=== PATIENT | male | born 1990 | race Caucasian/White ===

== ENCOUNTER 2020-07-05 17:15 | Emergency (ER) | payer OTHER, SELFPAY ==
[2020-07-05 17:15] VITALS: BP 119/96; PULSE 127; RESP 16; TEMP 36.5; O2SAT 100; BMI 19.5
--- NOTE | 2020-07-05 17:28 | RAD_ITS ---
STUDY: X-RAY - LEFT ANKLE REASON FOR EXAM: Male, 30 years old. [place] a pop, pain running up leg. TECHNIQUE: 3 view(s) of the ankle. COMPARISON: None. FINDINGS: There is a benign bone island of the distal tibia. Normal medial and lateral malleoli. Normal tibiotalar articulation and ankle mortise. Normal visualized talus and calcaneus. The visualized subtalar, talonavicular, calcaneocuboid and tarsal articulations are normal. The soft tissue structures are unremarkable. RAD/Ankle min 3 Views IMPRESSION: No fracture or malalignment. Electronically Signed: Kelvin Morales MD ([place]) at 18:12 EST , Service support ,
--- NOTE | 2020-07-05 17:28 | RAD_ITS ---
STUDY: X-RAY - LEFT TIBIA AND FIBULA REASON FOR EXAM: Male, 30 years old. [place] and quot;pop and quot;, pain running up leg. TECHNIQUE: 2 view(s) of the tibia and fibula were obtained. COMPARISON: None. FINDINGS: Normal visualized tibia. Normal visualized fibula. The soft tissue structures are unremarkable. RAD/Tibia & Fibula 2 Views IMPRESSION: Normal x-ray examination of the tibia and fibula. Electronically Signed: Kelvin Morales MD ([place]) at 18:13 EST , Service support ,
--- NOTE | 2020-07-05 17:52 | ED.VISSUMM ---
- ER Visit Summary Date of Service: 07/05/20 Chief Complaint: Left leg pain History of Present Illness: The patient is a 30 M presenting with left leg and ankle pain. Patient states he was jumping on a trampoline and felt a pop in his left leg. He has been able to ambulate with pain since. He took ibuprofen and Tylenol prior to arrival. He did not hit his head or lose consciousness. No other injuries. Physical Examination: Vitals are stable. Patient is afebrile. Alert no acute distress. HEENT exam is unremarkable. Neck is supple. Lungs are clear and equal bilaterally. Heart is regular rate and rhythm. Extremities left lateral lower leg tenderness. Left lateral ankle tenderness. Foot is nontender. Active full range of motion. Quadricep mechanism intact. Normal pulses. Myers test normal. Skin is warm and dry. No focal neurologic deficit. Remainder of exam is unremarkable. Emergency Department Course and Treatment: X-ray left tib-fib and left ankle show no acute process. Patient is advised to ice and elevate. He is given prescription for naproxen. He is given an Aircast. He declined crutches. Advised to follow-up with primary care physician. Advised return to ED for worsening complaints. Disposition: Discharge home Impression: Left leg injury, left ankle sprain This note was generated with [employer] dictation software. It may contain incorrect words, spelling, and punctuation that were not noted in review of the chart prior to signing ED Disposition - Plan for ED Patient: Instructions: ED Sprain Ankle W X Ray Prescriptions: Naproxen [Naprosyn] 500 mg PO BID #14 tab Prescription Printed Referrals: Rikki Beckham MD [NON-STAFF] -
--- NOTE | 2020-07-05 18:24 | ED.DEP ---
ED Disposition - Plan for ED Patient: Instructions: ED Sprain Ankle W X Ray Prescriptions: Naproxen [Naprosyn] 500 mg PO BID #14 tab Prescription Printed Referrals: Rikki Beckham MD [NON-STAFF] -
== END 2020-07-05 18:37 | disposition home or self-care (01) ==
LOC: ED 18:10
PROVIDERS: Emergency Provider Emergency Medicine
DX: S93.402A Sprain of unspecified ligament of left ankle, initial encounter (principal); S89.92XA Unspecified injury of left lower leg, initial encounter; Z72.0 Tobacco use; X58.XXXA Exposure to other specified factors, initial encounter; Y93.44 Activity, trampolining; Y92.89 Other specified places as the place of occurrence of the external cause; Y99.8 Other external cause status
CPT/HCPCS: 73590; 73610; 99282

== ENCOUNTER 2022-08-21 13:42 | Emergency (ER) | payer MEDICAID, SELFPAY ==
[2022-08-21 13:43] VITALS: BP 157/95; PULSE 90; RESP 18; TEMP 36.3; O2SAT 98; BMI 19.7
--- NOTE | 2022-08-21 14:00 | RAD_ITS ---
STUDY: X-RAY - RIGHT FOOT CLINICAL: Male, 32 years old. MARTIAL ARTS INJURY. APPROX 1 WEEK AGO. BRUISING DORSAL SURFACE OVER MTP JOINT OF FIRST DIGIT. TECHNIQUE: view(s) of the foot. COMPARISON: None. FINDINGS: Normal talus, calcaneus, and tarsal bones. Normal visualized subtalar, talonavicular, calcaneocuboid, tarsal and tarsometatarsal articulations. Normal metatarsi. Normal metatarsophalangeal joint of the great toe. Normal tibial and fibular sesamoid bones. Normal interphalangeal joint of the great toe. Normal phalanges of the great toe. Normal second through fifth metatarsophalangeal joints. Normal interphalangeal joints and phalanges of the lesser toes. The soft tissue structures are unremarkable. There is no demonstrated fracture. RAD/Foot min 3 Views IMPRESSION: Normal x-ray examination of the foot. Electronically Signed: Alber Hensley MD at 14:58 EST ,
--- NOTE | 2022-08-21 14:00 | RAD_ITS ---
STUDY: X-RAY - RIGHT SHOULDER REASON FOR EXAM: Male, 32 years old. PAIN/INJURY TECHNIQUE: 2 view(s) of the shoulder. COMPARISON: None. FINDINGS: Normal glenohumeral articulation. Normal acromioclavicular joint. Normal acromion. Normal humeral head and visualized proximal humerus. The soft tissue structures are unremarkable. There is no demonstrated fracture. Normal visualized pulmonary apex. RAD/Shoulder min 2 Views IMPRESSION: Normal x-ray examination of the shoulder. Electronically Signed: Alber Hensley MD at 14:59 EST ,
--- NOTE | 2022-08-21 14:14 | EX.ED.DYSGE1 ---
HPI History of Present Illness Chief Complaint: General Illness Informant: patient Onset/Context/Timing Onset: Days Narrative Narrative: Patient presents with multiple complaints. He complains of right shoulder and right great toe pain that he injured while doing martial arts. He also believes he may have an abdominal wall hernia. Patient states he was recently doing a drill in martial arts and swelling his right elbow back. He felt a pulling sensation over the anterior right shoulder and has had pain to that area since that time. He will intermittently have numbness to the right third, fourth, and fifth fingers. He also believes he may have broken his right great toe about a week ago. He has had bruising and pain to the area. He states it is improving but is not back to baseline. He also recently noted a bulge over his left upper abdominal wall below his ribs. He states it went back in on its own. He was looking at some information online and is concerned he may have a hernia. He has had some intermittent nausea but no vomiting. PFSH PFSH Medical History no medical history no medical history Home Medications naproxen 500 mg tablet 500 mg PO BID #14 tabs 07/05/20 [Rx Last Taken Unknown] ondansetron 4 mg disintegrating tablet 4 mg PO Q8H PRN nausea and vomiting #10 tabs 08/21/22 [Rx Last Taken Unknown] Allergy/AdvReac Type Severity Reaction Status Date / Time cefuroxime axetil Allergy Rash Verified 08/21/22 13:45 [From Ceftin] Social History Smoking Status: Current every day smoker tobacco type: cigarettes ROS ROS ED Constitutional Constitutional ED: Denies chills or fever(s) Eyes Eyes: Denies change in vision or discharge from eye(s) ENT ENT ED: Denies discharge from eye(s), rhinorrhea or sore throat Cardiovascular Cardiovascular: Denies chest pain or palpitations Respiratory/Chest Respiratory/Chest: Denies cough or dyspnea Gastrointestinal Gastrointestinal: Reports nausea; Denies abdominal pain, diarrhea or vomiting Genitourinary Genitourinary ED: Denies dysuria Musculoskeletal Musculoskeletal: Reports extremity pain; Denies back pain Integumentary Denies Abrasions or rash Neurologic Neurologic: Reports paresthesias; Denies headache(s) or weakness Psychiatric Psychiatric: Denies anxiety or depression Allergic/Immunologic Allergic/Immunologic ED: Denies lip swelling or urticaria EXAM Physical Exam Const Vital Signs: 08/21/22 13:43 Temperature 97.3 F L Temperature Source Temporal Pulse Rate 90 Respiratory Rate 18 Blood Pressure 157/95 H Blood Pressure Mean 115 Pulse Ox 98 Oxygen Delivery Method Room Air Positive well nourished and well developed General Appearance ED: well developed HEENT Reports normocephalic and head/scalp atraumatic Eyes PERRL and EOMs intact bilaterally Neck supple Chest Wall inspection of chest normal and palpation of chest normal Resp normal respiratory effort and clear to auscultation bilaterally Cardio regular rate and regular rhythm GI normal to inspection, nondistended, normoactive bowel sounds GI Narrative: No abdominal wall hernias noted. I had the patient bear down with no evidence of hernia appearing. Palpation: soft Back/Spine no CVA tenderness Extremity Extremity Narrative: Right shoulder: Mild tenderness over the anterior right shoulder. Full range of motion without difficulty. Normal strength and sensation with good cap refill distally. Right foot: Old appearing ecchymosis is noted along the base of the right great toe. Mild tenderness noted over the right great toe with no obvious deformity or edema. No tenderness at the ankle or knee. Neuro oriented x3 and no sensory deficits noted Sensorium / Orientation: alert Motor Exam: strength 5/5 throughout Psych mental status grossly normal MDM MDM MDM Narrative Medical decision making narrative: X-rays of the right shoulder and right foot were obtained per nursing protocol. Patient given a dose of Zofran for nausea. Radiography Diagnostic Testing: Clinical Impression(s) from Imaging Studies Foot X-Ray 08/21/22 14:00 IMPRESSION: Normal x-ray examination of the foot. Electronically Signed: Alber Hensley MD at 14:58 EST , Shoulder X-Ray 08/21/22 14:00 IMPRESSION: Normal x-ray examination of the shoulder. Electronically Signed: Alber Hensley MD at 14:59 EST , Treatment and Re-Evaluation Narrative: Right shoulder and right foot x-rays per my interpretation reveal no evidence of acute or recent fracture. Radiology interpretation is reviewed and agrees. On repeat evaluation patient states his nausea is improved. He does state that he tends to only eat 1 meal in the evening and goes all day without food. This may be contributing to his nausea. Patient describes what sounds like an abdominal wall hernia but there is no evidence of hernia on exam at this time. We discussed this at length. I did encourage him to follow-up with a surgeon if this recurs and is bothersome to him. He was advised that if the hernia protrudes to his abdomen and does not resolve or becomes painful he needs to return to the emergency room immediately. Discharge Plan Triage Chief Complaint: General Illness ED Provider: Soha José Dx/Rx/DC Orders Clinical Impression: Sprain of right shoulder, Contusion of right foot, Nausea, Abdominal wall hernia Instructions: ED Foot Contusion, ED Hernia (Adult), ED Shoulder Sprain Prescriptions: New ondansetron 4 mg tablet,disintegrating 4 mg PO Q8H PRN (Reason: nausea and vomiting) Qty: 10 0RF No Action naproxen 500 MG tablet 500 mg PO BID Qty: 14 0RF Primary Care Provider: Care Physician,No Primary Referrals: Fariha Grossman MD [Med Staff - [employer]] - As Needed Care Physician,No Primary [Primary Care Provider] - Disposition Disposition: Home, Self Care
[2022-08-21] MEDS: Ondansetron ODT 4 MG Tablet PO (14:35)
[2022-08-21 15:18] VITALS: BP 132/75; PULSE 61; RESP 15; O2SAT 99
== END 2022-08-21 15:19 | disposition home or self-care (01) ==
PROVIDERS: Emergency Provider Emergency Medicine; Visit Provider Emergency Medicine
DX: S43.401A Unspecified sprain of right shoulder joint, initial encounter (principal); R11.0 Nausea; S90.31XA Contusion of right foot, initial encounter; F17.210 Nicotine dependence, cigarettes, uncomplicated; K43.9 Ventral hernia without obstruction or gangrene; X58.XXXA Exposure to other specified factors, initial encounter
CPT/HCPCS: 73030; 73630; 96374; 99282

== ENCOUNTER → 2022-09-13 | Outpatient (CLI) | payer MEDICAID, SELFPAY ==
[2022-09-13 08:48] LABS: Absolute Lymphocyte Count 2.35 X10^3/uL (0.83-4.51); Absolute Neutrophil Count 3.5 X10^3/uL (2.0-7.7); Basophil# 0.04 X10^3/uL; Basophil% 0.6 % (0-1); Eosinophil# 0.35 X10^3/uL; Eosinophils% 4.9 % (0-5); Hematocrit 48.7 % (40-54); Hemoglobin 16.2 g/dL (13.0-16.5); Lymphocyte # 2.35 X10^3/ul (0.83-4.51); Lymphocyte % 33.1 % (19-41); Mean Corp Hgb Conc 33.3 g/dL (32-36); Mean Corpuscular Hgb 30.1 pg (27.0-32.0); Mean Corpuscular Volume 90.5 fL (80-94); Mean Platelet Vol. 11.1 fl (6.2-12.0); Monocyte# 0.81 X10^3/uL; Monocyte% 11.4 % (0-10); NRBC Flagged by Analyzer 0 % (0-5); Neutrophil # 3.52 X10^3/uL (2.7-7.7); Neutrophil % 49.7 % (47-70); Platelet Count 154 K/mm3 (150-450); RBC Distribution Width CV 13.2 % (11.6-14.6); RBC Distribution Width SD 43.5 fl (35.1-43.9); Red Blood Count 5.38 M/mm3 (4.6-6.2); White Blood Count 7.1 K/mm3 (4.4-11.0)
[2022-09-13 09:18] LABS: ALB/GLOB Ratio 1.5 RATIO (0.9-2.4); AST(SGOT) 11 U/L (15-37); Alanine Aminotransfer ALT/SGPT 20 U/L (16-61); Albumin, Serum 4.2 g/dL (3.2-5.0); Alkaline Phosphatase 42 U/L (45-117); Anion Gap 5 (5-15); BUN 13 mg/dL (7-18); Calcium,Total 9.2 mg/dL (8.5-10.1); Chloride 105 mmol/L (98-107); Cholesterol 182 mg/dL (200); Creatinine, Serum 0.93 mg/dL (0.70-1.30); EST Glomerular Filtration Rate 102 mL/min (>60); Est Glom Filt Rate - Afr Amer 123 mL/min (>60); Globulin 2.8 g/dL (2.2-4.2); Glucose 104 mg/dL (74-106); High Density Lipoprotein 52 mg/dL; Potassium 3.9 mmol/L (3.5-5.1); Sodium Level 141 mmol/L (136-145); Triglycerides 118 mg/dL; Very Low Density Lipoprotein 24 mg/dL (5-40)
[2022-09-13 10:20] LABS: Vitamin D,25 Hydroxy 17.7 ng/mL
== END | disposition home or self-care (01) ==
LOC: LAB 08:09
PROVIDERS: PCP Internal Medicine; Referring Provider Internal Medicine; Visit Provider Internal Medicine
DX: Z00.00 Encounter for general adult medical examination without abnormal findings (principal); Z13.220 Encounter for screening for lipoid disorders; Z13.1 Encounter for screening for diabetes mellitus; E55.9 Vitamin D deficiency, unspecified
CPT/HCPCS: 36415; 80053; 80061; 82306; 85025

== ENCOUNTER 2022-11-15 18:00 | Emergency (ER) | payer MEDICAID, SELFPAY ==
[2022-11-15 18:01] VITALS: BP 136/90; PULSE 100; RESP 16; TEMP 36.9; O2SAT 96; BMI 19.0
--- NOTE | 2022-11-15 18:46 | EKG12_ITS ---
Test Reason : SOB/DIZZYNESS Blood Pressure : / mmHG Vent. Rate : 075 BPM Atrial Rate : 075 BPM P-R Int : 152 ms QRS Dur : 104 ms QT Int : 366 ms P-R-T Axes : 049 086 052 degrees QTc Int : 408 ms Normal sinus rhythm Incomplete right bundle branch block Borderline ECG Confirmed by JAYA FAJARDO, LUCIE ([id number]), subeditor MICK RING ([id number]) on 11/21/2022 9:55:06 AM Referred By: GUERO/DAMIAN Confirmed By:LUCIE LAKE MD
--- NOTE | 2022-11-15 18:47 | RAD_ITS ---
INDICATION: SOB EXAMINATION/TECHNIQUE: X-RAY - XR Chest 1 View COMPARISON: None. FINDINGS: The lungs are clear. The cardiomediastinal silhouette is unremarkable. No pleural effusion or pneumothorax. No acute osseous abnormalities. RAD/Chest 1 View (Portable) IMPRESSION: No acute radiographic abnormalities. Electronically Signed: Rudy Sanchez MD at 19:14 EDT ,
--- NOTE | 2022-11-15 19:19 | ED.RN ---
STATES HE FEELS DIZZY/LIGHTHEADED AT TIMES AND HAS DIFFICULTY BREATHING WHEN HE'S DIZZY. ALSO STATES HE WAS HERE 4-6W AGO FOR ABD PAIN AND WAS TOLD HE MIGHT HAVE A HERNIA. HIS PCP STATED IT WAS LIKELY A MUSCULAR STRAIN. IT HAS BEEN BOTHERING HIM MORE.
[2022-11-15 19:21] VITALS: RESP 13; O2SAT 99
[2022-11-15 19:27] VITALS: BP 119/74
--- NOTE | 2022-11-15 20:05 | EX.ED.DYSGE1 ---
HPI History of Present Illness Chief Complaint: Shortness of Breath Informant: patient Narrative Narrative: Patient is here primarily because he gets episodes where he just feels like a little slightly lightheaded and gets a metallic taste in his mouth. These been going on for couple weeks. Not associated with any specific activity. He does not actually get dizzy. He does not feel like he is going to pass out. He just feels little different. He does not get chest pain with this. He does not get dyspnea. When I ask him about the cough that he mention, he said that is just a routine smoker's cough. Is not worse or different than any other time. He is not really here about cough or breathing problems. He also states that about a month and a half ago he was doing a stretch in martial arts. He felt a lump appeared in his left upper abdomen. He was seen for this. They thought this was likely hernia. But he states the lump went back. It still occasionally sore in that area but only with lifting and twisting. But the lump is never reappeared. He would just like like to have this looked at. He is eating and drinking and moving his bowels totally normal. No urinary symptoms. No polyuria or polydipsia. 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 pets and animals: Yes pets and animals: dog(s) and guinea pig(s) leisure activities: games, fishing and other history of recent travel: No sexually active: Yes Smoking Status: Current every day smoker tobacco type: cigarettes Tobacco: How many years used: 17 quit status: considering quitting alcohol intake: current details: couple times month substance use type: does not use well-balanced diet: about half the time caffeine: Yes eating out: rarely or never during the past year weight has: remained stable what type of physical activity do you participate in: other details: [employer] seatbelt use: always do you feel safe at home: Yes ROS ROS ED ROS Narrative A complete review of systems was performed and is negative except as documented in the history of present illness. Some specific details below. Constitutional: No recent fevers or chills. EYE: No visual complaints or pain. ENT: No difficulty swallowing. No swelling. No pain. He does get intermittent metallic taste in his mouth. This may be GERD. CV: No chest pain or palpitations. Respiratory: No dyspnea. No hemoptysis. No difficulty taking breaths. He states he has a chronic smoker's cough but is not different than any other time. GI: No nausea vomiting diarrhea. He has some soreness under the left rib on occasion. Please see history of present illness regarding the hernia. : No frequency dysuria or hematuria. Musculoskeletal: No recent trauma. No pains. Skin: No rash. Nondiaphoretic. Neuro: No weakness or numbness. He occasionally just feels a little bit off. But there is no focal weakness numbness tingling. No presyncope. No visual changes. Endocrine: No polyuria or polydipsia. No history of diabetes EXAM Physical Exam Narrative Exam Narrative: CONSTITUTIONAL: Patient is nontoxic in appearance. The patient looks comfortable. He is actually standing when I enter the room HEENT: No notable trauma. Mucous membranes moist. No sinus tenderness. No indication of pain with swallowing. EYES: No conjunctival injection. No proptosis. CARDIOVASCULAR: Regular rate. Regular rhythm. No notable murmur. No JVD. RESPIRATORY: No respiratory distress. Breathing is unlabored. No wheezes. No rhonchi. No rales. No pain with a deep breath. Lungs are completely clear and there is no coughing while I am in the room. GASTROINTESTINAL: Not distended. Bowel sounds are normal. No tenderness. No guarding. No rebound. No palpable mass. No bruit. I cannot feel this hernia even when I have him strain do crunches or sit up. Overall very benign abdomen. GENITOURINARY: No tenderness over the bladder. No CVA tenderness. MUSCULOSKELETAL: Atraumatic. No peripheral edema. No cord. No tenderness along the deep venous system. No asymmetry. NEUROLOGICAL: Patient is alert and appropriate. No focal deficit noted. SKIN: No noted rashes. No diaphoresis. PSYCHIATRIC: Patient is calm. Mood is appropriate. Const Vital Signs: 11/15/22 18:01 11/15/22 19:21 11/15/22 19:21 Temperature 98.4 F Temperature Source Temporal Pulse Rate 100 Respiratory Rate 16 13 Respiratory Effort Normal Respiratory Depth Normal Respiratory Pattern Normal Blood Pressure 136/90 H Blood Pressure Mean 105 Pulse Ox 96 99 Oxygen Delivery Method Room Air Room Air Room Air 11/15/22 19:26 11/15/22 19:27 11/15/22 21:00 Temperature Temperature Source Pulse Rate 63 Respiratory Rate 12 Respiratory Effort Respiratory Depth Respiratory Pattern Blood Pressure 119/74 112/73 Blood Pressure Mean 89 86 Pulse Ox 96 Oxygen Delivery Method Room Air Room Air MDM MDM MDM Narrative Medical decision making narrative: My independent interpretation the patient's single view AP chest x-ray shows no infiltrate. I see no hiatal hernia on this film. I see no sign of pneumothorax or abnormal gastric bubble. Final reading by radiology is no acute radiographic abnormalities. Patient CBC is normal. Electrolytes show no marked abnormalities. Glucose is normal. Renal function is normal. Electrolytes are normal. I had a long talk with the patient. He does have some chronic cough which he attributes to smoking. But he also gets intermittent metallic taste in his mouth. Reflux can also cause both of these. I recommend he get [id number] omeprazole and take this for a few weeks daily. To see if the symptoms resolve. I recommend he follow-up with primary physician also. We discussed reasons to return. Lab Data Attestation: I reviewed the patient's lab results. Labs: Laboratory Results - last 24 hr 11/15/22 11/15/22 20:20 20:20 WBC 8.1 RBC 5.04 Hgb 15.3 Hct 44.7 MCV 88.7 MCH 30.4 MCHC 34.2 RDW Std Deviation 42.5 RDW Coeff of You 13.1 Plt Count 154 MPV 10.7 Immature Gran % (Auto) 0.400 Neut % (Auto) 57.5 Lymph % (Auto) 29.8 [place] % (Auto) 9.1 Eos % (Auto) 2.7 Baso % (Auto) 0.5 Absolute Neuts (auto) 4.6 Absolute Lymphs (auto) 2.40 Nucleated RBC % 0 Sodium 140 Potassium 3.5 Chloride 108 H Carbon Dioxide 30.0 Anion Gap 2 L BUN 14 Creatinine 0.81 Estim Creat Clear Calc 130.04 Est GFR (MDRD) Af Amer 143 Est GFR (MDRD) Non-Af 118 BUN/Creatinine Ratio 17.3 Glucose 88 Calcium 9.1 Radiography Diagnostic Testing: Clinical Impression(s) from Imaging Studies Chest X-Ray 11/15/22 18:47 IMPRESSION: No acute radiographic abnormalities. Electronically Signed: Rudy Sanchez MD at 19:14 EDT , EKG Initial EKG: Comments: My independent interpretation the patient's EKG shows a normal sinus rhythm with overall rate of 75. No ectopy. Incomplete right bundle branch block. Mild peaking of T waves. No ST elevation or depression. CO interval, QRS duration and QTc are normal. Discharge Plan Triage Chief Complaint: Shortness of Breath ED Provider: Easton Major Dx/Rx/DC Orders Clinical Impression: GERD (gastroesophageal reflux disease), Metallic taste, Chronic cough Instructions: ED GERD (Adult) Prescriptions: No Action vitamin d3 PO Rx Instructions: 500 units daily Primary Care Provider: Fariha Grossman Referrals: Fariha Grossman MD [Primary Care Provider] - 10-14 Days if not better Activity Restrictions/Additional Instructions: Take omeprazole/Prilosec daily for the next several weeks to check for symptom improvement Disposition Disposition: Home, Self Care
[2022-11-15 20:29] LABS: Absolute Neutrophil Count 4.6 X10^3/uL (2.0-7.7); Basophil# 0.04 X10^3/uL; Basophil% 0.5 % (0-1); Eosinophil# 0.22 X10^3/uL; Eosinophils% 2.7 % (0-5); Hematocrit 44.7 % (40-54); Hemoglobin 15.3 g/dL (13.0-16.5); Lymphocyte % 29.8 % (19-41); Mean Corp Hgb Conc 34.2 g/dL (32-36); Mean Corpuscular Hgb 30.4 pg (27.0-32.0); Mean Corpuscular Volume 88.7 fL (80-94); Mean Platelet Vol. 10.7 fl (6.2-12.0); Monocyte# 0.73 X10^3/uL; Monocyte% 9.1 % (0-10); NRBC Flagged by Analyzer 0 % (0-5); Neutrophil # 4.64 X10^3/uL (2.7-7.7); Neutrophil % 57.5 % (47-70); Platelet Count 154 K/mm3 (150-450); RBC Distribution Width CV 13.1 % (11.6-14.6); RBC Distribution Width SD 42.5 fl (35.1-43.9); Red Blood Count 5.04 M/mm3 (4.6-6.2); White Blood Count 8.1 K/mm3 (4.4-11.0)
[2022-11-15 20:46] LABS: Anion Gap 2 (5-15); BUN 14 mg/dL (7-18); BUN/Creat Ratio 17.3 RATIO (10-20); Calcium,Total 9.1 mg/dL (8.5-10.1); Chloride 108 mmol/L (98-107); Creatinine, Serum 0.81 mg/dL (0.70-1.30); EST Glomerular Filtration Rate 118 mL/min (>60); Est Glom Filt Rate - Afr Amer 143 mL/min (>60); Estimated Creatinine Clearance 130.04 ml/min; Glucose 88 mg/dL (74-106); Potassium 3.5 mmol/L (3.5-5.1); Sodium Level 140 mmol/L (136-145)
[2022-11-15 21:00] VITALS: BP 112/73; PULSE 63; RESP 12; O2SAT 96
[2022-11-15 23:07] VITALS: BP 114/81; PULSE 69; RESP 18; O2SAT 98
== END 2022-11-15 23:21 | disposition home or self-care (01) ==
PROVIDERS: Emergency Provider Emergency Medicine; PCP Internal Medicine; Visit Provider Emergency Medicine
DX: K21.9 Gastro-esophageal reflux disease without esophagitis (principal); F17.210 Nicotine dependence, cigarettes, uncomplicated; R06.02 Shortness of breath; J45.909 Unspecified asthma, uncomplicated; R43.9 Unspecified disturbances of smell and taste
CPT/HCPCS: 71045; 80048; 85025; 93005; 99282; A4216

== ENCOUNTER 2023-03-19 07:27 | Emergency (ER) | payer MEDICAID, SELFPAY ==
[2023-03-19 07:28] VITALS: BP 138/76; PULSE 76; RESP 14; TEMP 36.6; O2SAT 100; BMI 19.1
--- NOTE | 2023-03-19 08:22 | EDS_ITS ---
HPI History of Present Illness Chief Complaint: Chest Pain Narrative Narrative: Patient is a 33-year-old male who is presenting to the ER today with chief complaint of right lower chest pain that is intermittent this morning and having shortness of breath as well. Patient helped move a heavy safe yesterday, but patient says that he did not do very physical aspects of moving this large object yesterday. Patient has no recent flulike illness. Patient states the pain and intermittent shortness of breath and pain with shortness of breath has been happening this morning. Patient does smoke 2 packs of cigarettes a day, has weaned down to 1-1.5 packs of cigarettes a day. Patient's father has a defibrillator along with his grandfather. No other family history, patient does not use cocaine, he has no history of blood pressure, diabetes or cholesterol. Patient's heart score is 1 for smoking. Patient has no recent traveling. No trauma. No other acute complaints. No rash. Patient states that if he twists and turns or moves his right upper extremity, he cannot reproduce the pain. Patient states the pain is slightly worse with sitting up and better with laying down. 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 pets and animals: Yes pets and animals: dog(s) and guinea pig(s) leisure activities: games, fishing and other history of recent travel: No sexually active: Yes Smoking Status: Current every day smoker tobacco type: cigarettes Tobacco: How many years used: 17 quit status: considering quitting alcohol intake: current details: couple times month substance use type: does not use well-balanced diet: about half the time caffeine: Yes eating out: rarely or never during the past year weight has: remained stable what type of physical activity do you participate in: other details: martial arts seatbelt use: always do you feel safe at home: Yes ROS ROS ED ROS Narrative REVIEW OF SYSTEMS: Unless otherwise stated in this report the patient's positive and negative responses for review of systems for constitutional, eyes, ENT, cardiovascular, respiratory, gastrointestinal, neurological, , musculoskeletal, and integument systems and related systems to the presenting problem are either stated in the history of present illness or were not pertinent or were negative for the symptoms and/or complaints related to the presenting medical problem. EXAM Physical Exam Narrative Exam Narrative: Vital signs reviewed and patient is not hypoxic. General: The patient appears well and in no apparent distress. Patient is resting comfortably on cart. Not toxic, lethargic, or listless. Skin: Warm, dry, no pallor noted. There is no rash noted. No rash to chest wall. Head: Normocephalic, atraumatic Eye: Normal conjunctiva, no drainage, EOMI. PERRL. Ears, Nose, Mouth, and Throat: oral mucosa is moist. Nares patent. Cardiovascular: Regular Rate and Rhythm, no murmurs, gallops, or rubs; no splinting. No reproducible tenderness to palpation to right anterior, lateral, posterior chest wall. Equal chest rise bilateral. Respiratory: Patient is in no distress, no accessory muscle use, lungs are clear to auscultation, no wheezing, rales or rhonchi Back: non-tender, no CVA tenderness bilaterally to percussion. NO CTLS midline or paraspinal tenderness to palpation. GI: Soft, no tenderness to palpation, no masses appreciated. No rebound, guarding, or rigidity noted. Musculoskeletal: The patient has full range of motion of all extremities and joints with no difficulty. Patient has no motor, no sensory deficits. Neurological: A&O x4, normal speech, no focal neurological deficits. Psychiatric: Cooperative Const Vital Signs: 03/19/23 07:28 03/19/23 07:35 Temperature 98 F Temperature Source Temporal Pulse Rate 76 Respiratory Rate 14 Respiratory Effort Normal Blood Pressure 138/76 H Blood Pressure Mean 96 Pulse Ox 100 Oxygen Delivery Method Room Air MDM MDM MDM Narrative Medical decision making narrative: Patient's EKG and chest x-ray showed no acute findings. Patient has no signs of pneumothorax. Patient was educated symptoms continued, to follow-up with PCP. See discharge instructions. Patient's heart score is 1. 3 to 5 minutes of tobacco education cessation was discussed at bedside. Patient will be discharged. 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 Patient feels comfortable with being discharged, no other questions at discharge. Radiography Chest X-Ray - ED: Read by ED Physician (Chest x-ray shows no acute cardiopulmonary disease, no infiltrate, no effusion.) Diagnostic Testing: Clinical Impression(s) from Imaging Studies Chest X-Ray 03/19/23 08:30 IMPRESSION: No acute cardiopulmonary process identified. Electronically Signed: Manuela Scott MD at 8:52 EDT , EKG Initial EKG: Attestation: I personally reviewed and interpreted this EKG as follows: Comments: EKG interpretation. Normal sinus rhythm at 73 beats a minute. Normal axis deviation. No acute ST elevation, no acute ectopy. QTc of 414. Discharge Plan Triage Chief Complaint: Chest Pain ED Provider: Faisal Britton Dx/Rx/DC Orders Clinical Impression: Tobacco abuse counseling, Tobacco abuse, Chest pain Instructions: Health Effects of Smoking, ED Chest Pain, Uncertain Cause, ED How to Quit Smoking Prescriptions: No Action vitamin d3 PO Rx Instructions: 500 units daily Primary Care Provider: Fariha Grossman Referrals: Fariha Grossman MD [Primary Care Provider] - Activity Restrictions/Additional Instructions: If symptoms continue, follow-up with PCP for additional outpatient testing. If you start developing heavy pressure, extreme shortness of breath, extreme sweating; nausea, vomiting, or any other acute concerns, please return to ER immediately. Disposition Disposition: Home, Self Care Discharge Date/Time: 03/19/23 09:13
--- NOTE | 2023-03-19 08:30 | RAD_ITS ---
HISTORY: cp. TECHNIQUE: XR Chest 2 Views. COMPARISON: 11/15/2022. FINDINGS: CARDIOMEDIASTINAL BORDERS: Cardiac silhouette within normal limits in size. Mediastinal contour unremarkable. LUNGS: Radiographically clear. PLEURA: No pleural effusion or pneumothorax seen. OSSEOUS STRUCTURES: Unremarkable. RAD/Chest PA and Lateral IMPRESSION: No acute cardiopulmonary process identified. Electronically Signed: Manuela Scott MD at 8:52 EDT ,
== END 2023-03-19 09:13 | disposition home or self-care (01) ==
PROVIDERS: Emergency Provider Emergency Medicine; PCP Internal Medicine; Visit Provider Emergency Medicine
DX: R07.9 Chest pain, unspecified (principal); Z71.6 Tobacco abuse counseling; F17.210 Nicotine dependence, cigarettes, uncomplicated; R06.02 Shortness of breath; J45.909 Unspecified asthma, uncomplicated
CPT/HCPCS: 71046; 93005; 99282

== ENCOUNTER 2024-09-07 19:37 | Emergency (ER) | payer MEDICAID, SELFPAY ==
[2024-09-07 19:38] VITALS: BP 149/99; PULSE 116; RESP 15; TEMP 37.6; O2SAT 95; BMI 19.1
--- NOTE | 2024-09-07 19:59 | EDS_ITS ---
HPI <Dr. Jayden Cedeno MD - Last Filed: 09/07/24 23:19> History of Present Illness Chief Complaint: Cough <DAMION Desai - Last Filed: 09/07/24 21:20> Narrative Narrative: Patient presenting today with concerns for pneumonia. He reports that 4 days ago he developed flulike symptoms consisting of a cough, congestion, sore throat, and fatigue. He went to his PCP with his and child who are also sick with similar symptoms, his tested positive for influenza A and the whole family was started on Tamiflu. He reports that his cough is not getting better, he reports pain in his mid chest with coughing, he reports this is improved with rest. He does smoke about a pack per day. He has had intermittent fevers and chills. He denies nausea, vomiting, and diarrhea. [facility] <Dr. Jayden Cedeno MD - Last Filed: 09/07/24 23:19> [facility] Medical History Smoker Irregular heartbeat Hernia Asthma Home Medications ?Medication ?Instructions ?Recorded ?Last Taken ?Type multivitamin 1 tab PO DAILY 04/06/23 Unkn own History Allergy/AdvReac Type Severity Reaction Status Date / Time cefuroxime axetil (From Allergy Rash Verified 09/07/24 19:38 Ceftin) Family History Father Diabetes Brother Asthma Mother Diabetes Grandfather Myocardial infarction Other Cancer Surgical History H/O adenoidectomy Hx of tonsillectomy Lymph node symptom Social History adopted: No household members: spouse housing: house number of children: 2 current occupational status: employed 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 pets and animals: Yes pets and animals: dog(s) and guinea pig(s) leisure activities: games, fishing and other history of recent travel: No sexually active: Yes Smoking Status: Current every day smoker tobacco type: cigarettes Tobacco: How many years used: 17 quit status: considering quitting alcohol intake: current details: couple times month substance use type: does not use well-balanced diet: about half the time caffeine: Yes eating out: rarely or never during the past year weight has: remained stable what type of physical activity do you participate in: other details: [employer] seatbelt use: always do you feel safe at home: Yes ROS <DAMION Desai - Last Filed: 09/07/24 21:20> ROS ED Constitutional Constitutional ED: Reports chills and fever(s) Cardiovascular Cardiovascular: Denies chest pain Respiratory/Chest Respiratory/Chest: Reports cough Gastrointestinal Gastrointestinal: Denies abdominal pain, nausea or vomiting Musculoskeletal Musculoskeletal: Denies arthralgias or myalgias Integumentary Denies rash Neurologic Neurologic: Denies weakness EXAM <Dr. Jayden Cedeno MD - Last Filed: 09/07/24 23:19> Physical Exam Const Vital Signs: 09/07/24 19:38 09/07/24 20:02 09/07/24 20:52 Temperature 99.6 F H 99.7 F H Temperature Source Oral Pulse Rate 116 H Respiratory Rate 15 18 Respiratory Effort Normal Non-Labored Respiratory Depth Normal Respiratory Pattern Normal Blood Pressure 149/99 H Blood Pressure Mean 115 Pulse Ox 95 Oxygen Delivery Method Room Air <DAMION Desai - Last Filed: 09/07/24 21:20> Physical Exam Const Vital Signs: 09/07/24 19:38 09/07/24 20:02 09/07/24 20:52 Temperature 99.6 F H 99.7 F H Temperature Source Oral Pulse Rate 116 H Respiratory Rate 15 18 Respiratory Effort Normal Non-Labored Respiratory Depth Normal Respiratory Pattern Normal Blood Pressure 149/99 H Blood Pressure Mean 115 Pulse Ox 95 Oxygen Delivery Method Room Air Positive well nourished, well developed and no apparent distress General Appearance ED: well developed HEENT Reports normocephalic and head/scalp atraumatic Mouth ED: Yes moist mucous membranes normal Eyes PERRL and EOMs intact bilaterally Neck full ROM and supple Chest Wall inspection of chest normal Resp normal respiratory effort and clear to auscultation bilaterally Cardio regular rate and regular rhythm Back/Spine normal ROM and normal to inspection Extremity normal to inspection and full ROM Neuro oriented x3, CN's II-XII intact bilaterally, moves all extremities, no focal motor deficits and no sensory deficits noted Sensorium / Orientation: awake and alert Psych mental status grossly normal and thought process normal Skin no rashes or lesions noted and no wounds [facility] <Dr. Jayden Cedeno MD - Last Filed: 09/07/24 23:19> [facility] Narrative Medical decision making narrative: Patient presenting today with a cough, he has concerns for pneumonia. He currently has influenza A. He does have a temperature here of 99.6 and is slightly tachycardic, he was given Tylenol. Chest x-ray obtained and is negative for infiltrate. He is already taking Tamiflu. Supportive care measures were discussed with him. Recommended that he stay well-hydrated and follow-up with his PCP. Return instructions were discussed and patient discharged home in stable condition. I have personally performed a face to face assessment of the patient and have reviewed the EMILIE Note. I performed a substantive portion of the visit including all aspects of the following. My [place] findings include: History is remarkable for flulike symptoms. His and child are positive for influenza A. His symptoms started within the last 24 to 48 hours. He is taking Tamiflu. He presents because he believes he has pneumonia. He had a temperature documented 102 to 103 ?F. Complains of headache, myalgias arthralgias. His cough is nonproductive. He has no GI. Exam is vital signs remarkable for tachycardia and elevated blood pressure. HEENT exam remarkable for nasal congestion. Lungs are clear auscultation with symmetric breath sounds. Heart is rapid and regular without murmur, gallop or rub. Abdomen benign. No dermatologic lesions noted. Medical Decision Making in light of the fact that family were to have influenza A his symptoms started after their patient's presentation consistent with influenza. X-ray was obtained. There is no evidence of pneumonia. He was made aware of this. Other additions or changes: [None] Radiography Diagnostic Testing: Clinical Impression(s) from Imaging Studies Chest X-Ray 09/07/24 20:05 IMPRESSION: 1. No acute cardiopulmonary process. Reading Location: [facility] <DAMION Desai - Last Filed: 09/07/24 21:20> [facility] Narrative Medical decision making narrative: Patient presenting today with a cough, he has concerns for pneumonia. He currently has influenza A. He does have a temperature here of 99.6 and is slightly tachycardic, he was given Tylenol. Chest x-ray obtained and is negative for infiltrate. He is already taking Tamiflu. Supportive care measures were discussed with him. Recommended that he stay well-hydrated and follow-up with his PCP. Return instructions were discussed and patient discharged home in stable condition. Radiography X-Ray: Read by ED Physician Diagnostic Testing: Clinical Impression(s) from Imaging Studies Chest X-Ray 09/07/24 20:05 IMPRESSION: 1. No acute cardiopulmonary process. Reading [facility] Dis[facility] Plan Triage Chief Complaint: Cough ED Midlevel Provider: Fariba Balderas ED Provider: Jayden Cedeno Dx/Rx/DC Orders Clinical Impression: Influenza A, Cough, Fever in adult Instructions: ED Influenza (Adult) Prescriptions: No Action multivitamin Tablet 1 tab PO DAILY Primary Care Provider: Fariha Grossman Referrals: Fariha Grossman MD [Primary Care Provider] - 3-5 Days Activity Restrictions/Additional Instructions: Alternate Tylenol and ibuprofen as needed for fevers. You can take [id number] cough medicine. Follow-up with your PCP and return for any other concerns. Stay well-hydrated. Print Language: Wolof Disposition Disposition: Home, Self Care Discharge Date/Time: 09/07/24 20:53
--- NOTE | 2024-09-07 20:05 | RAD_ITS ---
PROCEDURE: CHEST PA AND LATERAL REASON FOR EXAM: Cough TECHNIQUE: Frontal and lateral views of the chest.. COMPARISON: 03/19/2023 FINDINGS: The lungs are clear. No pleural effusion or pneumothorax. The cardiomediastinal silhouette is unremarkable. No acute osseous or soft tissue abnormality. RAD/Chest PA and Lateral IMPRESSION: 1. No acute cardiopulmonary process. Reading Location: [facility]
[2024-09-07] MEDS: Acetaminophen 325 MG Tablet 650 MG PO (20:26)
[2024-09-07 20:52] VITALS: RESP 18; TEMP 37.6
== END 2024-09-07 20:53 | disposition home or self-care (01) ==
PROVIDERS: Emergency Provider Emergency Medicine; PCP Internal Medicine; Visit Provider Emergency Medicine
DX: J10.1 Influenza due to other identified influenza virus with other respiratory manifestations (principal); R03.0 Elevated blood-pressure reading, without diagnosis of hypertension; R50.9 Fever, unspecified; F17.210 Nicotine dependence, cigarettes, uncomplicated; J45.909 Unspecified asthma, uncomplicated
CPT/HCPCS: 71046; 99282